=== PATIENT | female | born 1935 | race Caucasian/White ===

== ENCOUNTER → 2017-06-23 | Outpatient (CLI) | payer MEDICARE, OTHER | LOC: GT 06:08 | PROVIDERS: ATTEND Family Medicine | DX: I10 Essential (primary) hypertension (principal); E87.6 Hypokalemia ==

== ENCOUNTER → 2017-12-22 | Outpatient (CLI) | payer MEDICARE | LOC: GT 06:53 | PROVIDERS: ATTEND Family Medicine | DX: F02.81 Dementia in other diseases classified elsewhere, unspecified severity, with behavioral disturbance (principal); I10 Essential (primary) hypertension; E63.9 Nutritional deficiency, unspecified; Z86.718 Personal history of other venous thrombosis and embolism; G30.1 Alzheimer's disease with late onset | CPT/HCPCS: 36415; 80053; 85025; P9603 ==